=== PATIENT | female | born 1975 | race Caucasian/White ===

== ENCOUNTER 2024-01-09 15:47 | Emergency (ER) | payer OTHER, MEDICAID ==
[~2024-01-09] VITALS: Ht 157.5 cm; Wt 88.5 kg
[2024-01-09 16:03] VITALS: BP_SYST 140; PULSE 96; RESP 20; TEMP 97.6; O2SAT 100
[2024-01-09] MEDS ORDERED: IBUP-1969 PO (17:52)
[2024-01-09] MEDS: IBUPROFEN 800 MG TABLET PO ONE (17:58)
[2024-01-09 19:13] VITALS: BP_SYST 140; PULSE 96; RESP 20; TEMP 97.6; O2SAT 100
== END 2024-01-09 19:13 | disposition home or self-care (01) ==
LOC: SED 15:47
DX: S63.592A Other specified sprain of left wrist, initial encounter (principal); S09.8XXA Other specified injuries of head, initial encounter; Z79.899 Other long term (current) drug therapy; V43.52XA Car driver injured in collision with other type car in traffic accident, initial encounter; Y93.89 Activity, other specified; Y92.89 Other specified places as the place of occurrence of the external cause; Y99.8 Other external cause status
CPT/HCPCS: 70450-TC; 99284